=== PATIENT | female | born 1975 | race Caucasian/White ===

== ENCOUNTER 2016-08-25 05:36 | Emergency (ER) | payer MEDICARE ==
[2016-08-25] MEDS ORDERED: ONDANSETRON ODT 4 MG TAB.RAPDIS ONE (06:02)
[2016-08-25 06:16] LABS: BASOPHIL# 0.1 X 10^3uL (0.0-0.1); BASOPHILS 0.5 % (0.0-2.0); EOSINOPHILS 2.7 % (0.0-6.0); EOSINOPHILS# 0.3 X 10^3uL (0.0-0.4); HEMATOCRIT 43.9 % (36.0-48.0); HEMOGLOBIN 15.3 g/dL (12.0-16.0); LYMPHOCYTES 30.8 % (20.0-40.0); LYMPHOCYTES# 3.2 X 10^3uL (0.8-3.8); MEAN CELL VOLUME 85.7 fL (84.0-102.0); MEAN PLATELET VOLUME 8.8 fL (7.4-10.4); MONOCYTES 4.9 % (2.0-10.0); MONOCYTES# 0.5 X 10^3uL (0.2-1.0); NEUTROPHILS 61.1 % (54.0-75.0); NEUTROPHILS# 6.2 X 10^3uL (2.6-6.7); PLATELET COUNT 244 X 10^3uL (130-440); RED BLOOD COUNT 5.12 X 10^6uL (4.20-6.10); RED CELL DISTRIBUTION WIDTH 12.7 % (11.5-14.5); WHITE BLOOD COUNT 10.3 X 10^3uL (3.9-10.7)
[2016-08-25] MEDS ORDERED: HYDROmorphone HCL 1 MG/ML SYR ONE (06:17)
[2016-08-25] MEDS ORDERED: ONDANSETRON HCL 4 MG/2 ML VIAL ONE (06:18)
[2016-08-25 06:28] LABS: ALBUMIN 4.7 g/dL (3.5-5.0); ALKALINE PHOSPHATASE 81 U/L (38-126); ALT 43 U/L (9-52); AST 27 U/L (14-36); BILIRUBIN, DIRECT 0.4 mg/dL (0.0-0.4); BILIRUBIN, TOTAL 0.6 mg/dL (0.2-1.3); BLOOD UREA NITROGEN 7 mg/dL (7-17); CALCIUM 9.9 mg/dL (8.4-10.2); CHLORIDE 102 mmol/L (98-107); CREATININE 0.7 mg/dL (0.5-1.0); EST GLOMERULAR FILTRATION RATE > 60 mL/min; GLUCOSE 117 mg/dL (70-100); LIPASE 71 U/L (23-300); SODIUM 143 mmol/L (137-145); TOTAL PROTEIN 8.3 g/dL (6.3-8.2)
[2016-08-25 06:40] LABS: TROPONIN I < 0.012 ng/mL (0.00-0.034)
--- NOTE | 2016-08-25 07:28 | ER PHYSICIAN DOCUMENTATION ---
Physician Documentation [facility] Name:Cinthya Yanes Age:41 yrs Sex:Female :1975 Arrival Date:08/25/2016 Time:05:36 Bed3 Private MD: Taco Salazar Disposition: 08/25/16 07:16 Discharged to Home/Self Care. Impression: Dehydration, Abdominal Pain, Generalized, Abdominal Pain, Left Lower Quadrant. - Condition is Good. - Discharge Instructions: Abdomen - ABDOMINAL PAIN, Unknown Cause, (Female). - Prescriptions for Hydrocodone- Acetaminophen 5-325 mg Oral Tablet - take 1 tablet by ORAL route every 6 hours As needed; 20 tablet. - Medical Reconciliation form form. - Follow up: Gurinder Lange MD; When: Tomorrow; Reason: Continuance of care. - Problem is an ongoing problem. - Symptoms have improved. HPI: 08/25 06:00 This 41 yrs old Female presents to ER via EMS with complaints of jm Nausea/Vomiting, Chest Tightness. 06:00 The patient presents to the emergency department with nausea, with vomiting, with jm diarrhea, with associated abdominal pain, of the suprapubic area, right lower quadrant and left lower quadrant. Onset: The symptom(s)/episode began/occurred 3 week(s) ago. Possible causes: unknown. The symptoms are alleviated by nothing. Associated signs and symptoms: Pertinent positives: abdominal pain. Severity of symptoms: in the emergency department the symptoms are unchanged. The patient has experienced similar episodes in the past, and the symptoms today are exactly the same, to when the patient was apparently diagnosed with unknown abd pain. Pt has been worked up in the past, but no dx has been made. . The patient has been recently seen by a physician: Dr. Lange yesterday. . Pt upset that nobody can tell her where her pain is from. . Historical: - Allergies: PENICILLINS; Codeine; Tramadol HCl; - Home Meds: 1. Abilify oral 2. triliptal 3. Zoloft Oral - PMHx: DEPRESSION; pre-diabetes; Gastroenteritis (August 04, 2016); Dehydration (August 04, 2016); Hyperglycemia (August 04, 2016); - PSHx: HYSTERECTOMY; KNEE SURGERY; CHOLECYSECTOMY; HYSTERECTOMY; - Tetanus: < 10 years. - Ebola Screening: : Patient negative for fever greater than or equal to 101.5 degrees Fahrenheit, and additional compatible Ebola Virus Disease symptoms. - Immunization history: Flu Vaccine < 1 year. - Social history: Smoking status: Patient uses tobacco products, current every day smoker. ROS: 06:00 Constitutional: Negative for fatigue, fever. 06:00 ENT: Negative for sinus congestion, sinus pain, sore throat. 06:00 Cardiovascular: Positive for chest pain. 06:00 Respiratory: Negative for cough, shortness of breath. 06:00 Abdomen/GI: Positive for abdominal pain, nausea, vomiting, diarrhea. 06:00 : Negative for urinary symptoms. 06:00 All other systems are negative. Exam: 06:00 Constitutional: The patient appears alert, awake, obese. 06:00 Head/face: Exam is negative for obvious evidence of injury or deformity, Sinus tenderness, is not appreciated. 06:00 Eyes: Periorbital structures: appear normal, Conjunctiva: normal. 06:00 ENT: Mouth: is normal, Voice: is normal. 06:00 Cardiovascular: Rate: normal, Rhythm: regular. 06:00 Respiratory: Respirations: normal, Breath sounds: are normal. 06:00 Abdomen/GI: Bowel sounds: normal, Palpation: soft, moderate abdominal tenderness, in the suprapubic area, right lower quadrant and left lower quadrant. 06:00 Back: CVA tenderness, is absent, vertebral tenderness, is not appreciated. 06:00 : CVA tenderness, is absent. 06:00 Skin: Appearance: Color: pink, no rash present. 06:00 Neuro: Mentation: is normal, Gait: is steady. 06:00 Psych: Behavior/mood is pleasant, cooperative, Affect is calm. Vital Signs: 05:46 BP 132 / 79; Pulse 85; Resp 17; Temp 98.2; Pulse Ox 98% on R/A; Weight 58.97 kg; Height rh 5 ft. 6 in. (167.64 cm); Pain 6/10; 07:27 BP 122 / 74; Pulse 82; Resp 20; Pulse Ox 96% on R/A; st 05:46 Body Mass Index 20.98 (58.97 kg, 167.64 cm) rh MDM: 05:47 Patient medically screened. 06:00 Differential diagnosis: viral gastroenteritis, gastroenteritis. Data reviewed: vital jm signs, nurses notes, old medical records, lab test result(s), radiologic studies, and as a result, I will discharge patient. Counseling: I had a detailed discussion with the patient and/or guardian regarding: the historical points, exam findings, and any diagnostic results supporting the discharge/admit diagnosis, lab results, radiology results, the need for outpatient follow up, with the patient's primary care provider. 06:00 Medication response: The patient's symptoms have improved. Response to treatment: the patient's symptoms have markedly improved after treatment. ED course: Pt better after meds. NO cause for pt's continued pain, but no EMC identified. . 08/25 06:22 Order name: CBC AUTO DIF, MDIF/RMOR IF IND; Complete Time: 07:16 EDMS 08/25 06:37 Order name: BASIC METABOLIC PANEL; Complete Time: 07:16 EDMS 08/25 06:37 Order name: HEPATIC PANEL; Complete Time: 07:16 EDMS 08/25 06:37 Order name: LIPASE; Complete Time: 07:16 EDMS 08/25 06:40 Order name: TROPONIN I; Complete Time: 07:16 EDMS 08/25 06:04 Order name: EKG - 12 Lead; Complete Time: 06:24 08/25 06:04 Order name: NPO; Complete Time: 06:24 08/25 06:25 Order name: Oxygen; Complete Time: 06:25 rh Dispensed Medications: 06:15 Drug: Phenergan 12.5 mg; Route: IVP; Site: left antecubital; rh 06:29 Follow up: Response: No adverse reaction rh 06:18 Drug: Zofran 4 mg; Route: IVP; Infused Over: 2 mins; Site: left antecubital; rh 06:29 Follow up: Response: No adverse reaction; Nausea is decreased rh 06:18 Drug: NS 0.9% 1000 ml; Route: IV; Rate: bolus; Site: left antecubital; rh 07:28 Follow up: IV Status: Completed infusion; IV Intake: 1000ml st 06:24 Drug: Dilaudid 1 mg; Route: IVP; Site: left antecubital; rh 06:29 Follow up: Response: Pain is decreased rh Signatures: Twombly, Summer, RN RN st Mathur, Taco, MD MD jm Hofsess, Michell rh
--- NOTE | 2016-08-25 07:28 | ER NURSING DOCUMENTATION ---
Nurse's Notes [facility] Name:Cinthya Yanes Age:41 yrs Sex:Female :1975 Arrival Date:08/25/2016 Time:05:36 Bed3 Private MD: Diagnosis:Dehydration;Abdominal Pain, Generalized;Abdominal Pain, Left Lower Quadrant Presentation: 08/25 05:42 Acuity: FLACO 3 rh 05:43 Presenting complaint: Patient states: N/V/D for two weeks along with headache. Pt last rh night developed chest discomfort that is intermittent. Transition of care: Home. Care prior to arrival: Medication(s) given: Zofran 4mgODT Labs. 05:43 Method Of Arrival: EMS: 410 rh Triage Assessment: 05:45 General: Appears in no apparent distress, Behavior is cooperative. Pain: Complains of rh pain in chest and abdomen. EENT: Oral mucosa is dry. Neuro: Level of Consciousness is awake, alert, obeys commands. Cardiovascular: Capillary refill < 3 seconds. Respiratory: Airway is patent Respiratory effort is even, unlabored. GI: Abdomen is obese, Reports diarrhea, nausea, vomiting, since two weeks. : Reports urinary frequency. Derm: Skin is intact, is healthy with good turgor, Skin is pink, warm & dry. Historical: - Allergies: PENICILLINS; Codeine; Tramadol HCl; - Home Meds: 1. Abilify oral 2. triliptal 3. Zoloft Oral - PMHx: DEPRESSION; pre-diabetes; Gastroenteritis (August 04, 2016); Dehydration (August 04, 2016); Hyperglycemia (August 04, 2016); - PSHx: HYSTERECTOMY; KNEE SURGERY; CHOLECYSECTOMY; HYSTERECTOMY; - Tetanus: < 10 years. - Ebola Screening: : Patient negative for fever greater than or equal to 101.5 degrees Fahrenheit, and additional compatible Ebola Virus Disease symptoms. - Immunization history: Flu Vaccine < 1 year. - Social history: Smoking status: Patient uses tobacco products, current every day smoker. Screenin:47 Infectious Disease Risk None. Abuse screen: Denies threats or abuse. Denies injuries rh from another. Nutritional screening: No deficits noted. Assessment: 05:47 See Triage Assessment done by same RN. rh Vital Signs: 05:46 BP 132 / 79; Pulse 85; Resp 17; Temp 98.2; Pulse Ox 98% on R/A; Weight 58.97 kg; Height rh 5 ft. 6 in. (167.64 cm); Pain 6/10; 07:27 BP 122 / 74; Pulse 82; Resp 20; Pulse Ox 96% on R/A; st 05:46 Body Mass Index 20.98 (58.97 kg, 167.64 cm) ED Course: 05:38 Patient arrived in ED. ma 05:42 Michell Devi is Primary Nurse. 05:42 Triage completed. rh 05:47 Taco Mathur MD is Attending Physician. 05:47 Notified ED Physician of patient's arrival and chief complaint. Dr. Mathur notified. rh 05:47 Valuables Remains with patient Patient has correct armband on for positive rh identification. Bed in low position. Call light in reach. Side rails up X 1. 05:47 Maintain field IV. Dressing intact. Site clean & dry. Gauge & site: 20G L AC. rh 06:15 Oxygen Oxygen administration via nasal cannula @ 2L/min. rh 06:19 EKG done. (by ED staff). Reviewed by Taco Mathur MD. rh 06:[address] ms 07:00 Patient moved back from CT. ms 07:15 Gurinder Lange MD is Referral Physician. Administered Medications: 06:15 Drug: Phenergan 12.5 mg; Route: IVP; Site: left antecubital; rh 06:29 Follow up: Response: No adverse reaction rh 06:18 Drug: Zofran 4 mg; Route: IVP; Infused Over: 2 mins; Site: left antecubital; rh 06:29 Follow up: Response: No adverse reaction; Nausea is decreased rh 06:18 Drug: NS 0.9% 1000 ml; Route: IV; Rate: bolus; Site: left antecubital; rh 07:28 Follow up: IV Status: Completed infusion; IV Intake: 1000ml st 06:24 Drug: Dilaudid 1 mg; Route: IVP; Site: left antecubital; rh 06:29 Follow up: Response: Pain is decreased rh Intake: 07:28 IV: 1000ml; Total: 1000ml. st Outcome: 07:16 Discharge ordered by MD. 07:27 Discharged to home ambulatory. st 07:27 Condition: stable 07:27 Discharge instructions given to patient, Instructed on discharge instructions, follow up and referral plans. medication usage, Prescriptions given X 1. 07:28 Patient left the ED. 08/26 09:23 Discharge F/U Call: Unable to reach: no answer nf Signatures: Estefania Tobar, RN Susan Infante RN RN nf Meyer, John, MD MD jm Strickland, Mary ms Hofsess, Susi Miller
--- NOTE | 2016-08-25 08:04 | CT REPORT ---
HISTORY: Bilateral flank pain x1 month COMPARISON: CT pelvis dated 06/28/2016 TECHNIQUE: This examination was performed using automated exposure control, adjustment of mA or kV according to patient size, and/or use of iterative reconstruction technique. Multiple contiguous axial images were obtained from the lung bases through the pubic symphysis following administration of intravenous contrast. 100cc Isovue 300 contrast. FINDINGS: The visualized lung parenchyma and cardiac structures are unremarkable. Abdomen/pelvis: The liver is borderline enlarged with right hepatic lobe spanning 19.8 cm, probable hepatic steatosis. The patient is status post cholecystectomy. The spleen is normal in appearance. There is no pancreatic mass or ductal dilatation. The adrenal glands are unremarkable. The kidneys are equal in size and enhancement. There is a 4 mm nonobstructing calculus within the inferior pole of the left kidney. The stomach, small bowel, and large bowel are unremarkable. No significant free fluid is noted. The uterus is surgically absent, no adnexal mass There is no mesenteric edema or inflammatory process. Vascular structures of the abdomen and pelvis are unremarkable. No pathologic adenopathy is identified. No suspicious bony lesions are seen. IMPRESSION: 1. No acute intra-abdominal pathology 2. Nonobstructive nephrolithiasis, left kidney 3. Mild hepatomegaly, probable hepatic steatosis. Findings were communicated by telephone to Taco Mathur 08/25/2016 7:12 AM Final Electronic Signature: This report was electronically signed by Marko Spears MD on 08/25/2016 7:11 AM. joels / MICHAEL
== END 2016-08-25 07:29 | disposition home or self-care (01) ==
LOC: ER 05:36
DX: E86.0 Dehydration (principal); R10.84 Generalized abdominal pain; R11.2 Nausea with vomiting, unspecified; R19.7 Diarrhea, unspecified; F17.210 Nicotine dependence, cigarettes, uncomplicated; Z79.899 Other long term (current) drug therapy; Z74.3 Need for continuous supervision
CPT/HCPCS: 74177; 80048; 80076; 83690; 84484; 85025; 93005; 96361; 96374; 96375; 99285; A0425; A0427; J1170; J2405; J2550

== ENCOUNTER 2016-10-08 18:59 | Emergency (ER) | payer MEDICARE, MEDICAID ==
[2016-10-08] MEDS ORDERED: predniSONE 10 MG TABLET PO ONE (20:05)
[2016-10-08] MEDS ORDERED: DOXYCYCLINE 100 MG CAPSULE PO ONE (20:05)
[2016-10-08] MEDS ORDERED: ALBUTEROL HFA 1 INH INHALER INHALATION ONE (20:06)
[2016-10-08] MEDS ORDERED: HYDROcodone/APAP PREPAC 5/325 1 TAB TABLET PO ONE (20:06)
[2016-10-08] MEDS ORDERED: INHALER, ASSIST DEVICES 1 PKT EACH ONE (20:06)
--- NOTE | 2016-10-08 20:09 | ER PHYSICIAN DOCUMENTATION ---
Physician Documentation [facility] Name:Cinthya Yanes Age:41 yrs Sex:Female :1975 Arrival Date:10/08/2016 Time:18:59 Bed4 Private MD:Gurinder Lange ED, Tom Disposition: 10/08 20:30 Chart complete. tl1 Disposition: 10/08/16 19:51 Discharged to Home/Self Care. Impression: Reactive Airway Dz w/ Bronchitis, Bronchitis Chronic Obstructive W/Acute Exacerbation. - Condition is Good. - Discharge Instructions: BRONCHITIS w/ Wheezing (Adult), BRONCHITIS, ANTIBIOTICS (Child). - Prescriptions for albuterol sulfate 90 mcg/actuation Inhalation HFA aerosol inhaler - inhale 2 puff by INHALATION route every 4-6 hours; 1 Inhaler. Prednisone 20 mg Oral Tablet - take 2 tablet by ORAL route once daily for 5 days; 10 tablet. Doxycycline Hyclate 100 mg Oral Tablet - take 1 tablet by ORAL route every 12 hours; 20 tablet. - Medical Reconciliation form form. - Follow up: Gurinder Lange MD; When: 4- 6 days; Reason: Recheck today's complaints, Continuance of care. - Problem is new. - Symptoms have improved. HPI: 19:06 This 41 yrs old Female presents to ER with complaints of Non-Productive Cough.tl1 19:41 The patient or guardian reports cough, that is intermittent, with no sputum. Onset: The tl1 symptom(s)/episode began/occurred 7 day(s) ago. 19:41 She has been smoking for 25 years. Cough is productive when she wakes up in the AM and tl1 is getting worse. Has noted some wheezing and some subjective fever, but no chills or sweats. Does have some mild dyspnea. No hemoptysis. No chest pain or pressure. No h/o CAD or any RF for PE.. No LE edema or discomfort. No PND or orthopnea.. Historical: - Allergies: PENICILLINS; Codeine; Tramadol HCl; - Home Meds: 1. Lisinopril Oral 2. Abilify oral 3. Trileptal oral 4. Zoloft Oral 5. Glyburide Oral - PMHx: Diabetes - NIDDM; Hypertension; DEPRESSION; ptsd; - PSHx: Tonsillectomy; Knee surgery; Hysterectomy; Cholecysectomy; - Tetanus: < 10 years. - Ebola Screening: : Patient denies exposure to infectious person. Patient denies travel to an Ebola-affected area in the 21 days before illness onset. . - Immunization history: Flu Vaccine < 1 year. - Social history: Smoking status: Patient uses tobacco products, current every day smoker. Patient uses marijuana Patient/guardian denies using alcohol. - Code Status:: Full code. ROS: 20:00 Respiratory: Positive for cough, wheezing, Negative for dyspnea on exertion, tl1 hemoptysis, pleurisy, shortness of breath. 20:00 All other systems are negative. Exam: 20:00 Head/Face: Normocephalic, atraumatic. tl1 Eyes: Pupils equal round and reactive to light, extra-ocular motions intact. Lids and lashes normal. Conjunctiva and sclera are non-icteric and not injected. Cornea within normal limits. Periorbital areas with no swelling, redness, or edema. Neck: Trachea midline, no thyromegaly or masses palpated, and no cervical lymphadenopathy. Supple, full range of motion without nuchal rigidity, or vertebral point tenderness. No Meningismus. Chest/axilla: Normal chest wall appearance and motion. Nontender with no deformity. No lesions are appreciated. 20:00 Cardiovascular: Regular rate and rhythm with a normal S1 and S2. No gallops, murmurs, tl1 or rubs. Normal PMI, no JVD. No pulse deficits. 20:00 Constitutional: The patient appears in no acute distress, alert, awake, non-diaphoretic, non-toxic, well developed, well hydrated, well groomed, well nourished, somewhat fatigued 20:00 Respiratory: Respirations: normal, Breath sounds: rales, are not appreciated, rhonchi, are not appreciated, wheezing, is not appreciated, decreased breath sounds, that are mild, stridor, is not appreciated. 20:00 Abdomen/GI: Inspection: abdomen appears normal, Palpation: abdomen is soft and non-tender. 20:00 Musculoskeletal/extremity: Extremities: no acute changes. 20:00 Skin: Exam negative for acute changes. 20:00 Neuro: Orientation: is normal, appropriate for stated age, Mentation: is normal, Memory: is normal, Cranial nerves: Motor: moves all fours, Gait: is steady, at a normal pace, without difficulty, appropriate for age. Vital Signs: 19:12 BP 116 / 76; Pulse 86; Resp 14; Temp 97.9; Pulse Ox 94% on R/A; Weight 105.69 kg; lb Height 5 ft. 6 in. (167.64 cm); Pain 8/10; 20:07 BP 116 / 70; Pulse 80; Resp 16; Pulse Ox 94% on R/A; lb 19:12 Body Mass Index 37.61 (105.69 kg, 167.64 cm) lb MDM: 19:05 Patient medically screened. tl1 20:30 Differential Diagnosis: Bronchitis Influenza Upper Respiratory Infection Viral Syndrome tl1 Pneumonia. Data reviewed: vital signs, nurses notes, and as a result, I will discharge patient. Counseling: I had a detailed discussion with the patient and/or guardian regarding: the historical points, exam findings, and any diagnostic results supporting the discharge/admit diagnosis, the need for outpatient follow up, to return to the emergency department if symptoms worsen or persist or if there are any questions or concerns that arise at home. Response to treatment: There is no appreciated change of the patient's symptoms at this time, and as a result, I will discharge patient. Dispensed Medications: 20:06 Drug: Doxycycline 100 mg; Route: PO; lb 20:06 Follow up: Response: No adverse reaction lb 20:06 Drug: predniSONE 40 mg; Route: PO; lb 20:06 Follow up: Response: No adverse reaction lb 20:06 Drug: Albuterol HFA Inhaler 2 puffs; Route: Inhalation; lb 20:06 Follow up: Response: Pharmacy closed - take home med pack lb 20:06 Drug: HYDROcodone-acetaminophen (5mg/325 mg) 1-2 tabs 1 tabs; Route: PO; lb 20:06 Follow up: Response: Pharmacy closed - take home med pack lb Signatures: Wayne Fields MD MD tl1 Leigh Weiss
--- NOTE | 2016-10-08 20:09 | ER NURSING DOCUMENTATION ---
Nurse's Notes [facility] Name:Cinthya Yanes Age:41 yrs Sex:Female :1975 Arrival Date:10/08/2016 Time:18:59 Bed4 Private MD:Gurinder Lange Diagnosis:Bronchitis Chronic Obstructive W/Acute Exacerbation;Reactive Airway Dz w/ Bronchitis Presentation: 10/08 19:09 Presenting complaint: Patient states: sore throat, headache, right side neck pain for 1 lb week. taking otc cold meds without relief. also c/o dry harsh cough, chest congestion. Transition of care: Home. Notified ED Physician of Dr. Fields notified. 19:09 Acuity: FLACO 4 lb 19:09 Method Of Arrival: Walk In lb Triage Assessment: 19:12 General: Appears uncomfortable, Behavior is appropriate for age. Pain: Complains of lb pain in left denominational, right jaw and left jaw. Historical: - Allergies: PENICILLINS; Codeine; Tramadol HCl; - Home Meds: 1. Lisinopril Oral 2. Abilify oral 3. Trileptal oral 4. Zoloft Oral 5. Glyburide Oral - PMHx: Diabetes - NIDDM; Hypertension; DEPRESSION; ptsd; - PSHx: Tonsillectomy; Knee surgery; Hysterectomy; Cholecysectomy; - Tetanus: < 10 years. - Ebola Screening: : Patient denies exposure to infectious person. Patient denies travel to an Ebola-affected area in the 21 days before illness onset. . - Immunization history: Flu Vaccine < 1 year. - Social history: Smoking status: Patient uses tobacco products, current every day smoker. Patient uses marijuana Patient/guardian denies using alcohol. - Code Status:: Full code. Screenin:13 Infectious Disease Risk None. Abuse screen: Denies threats or abuse. Denies injuries lb from another. Nutritional screening: No deficits noted. Assessment: 19:13 See Triage Assessment done by same RN. lb 19:15 Respiratory: Airway is patent Trachea midline Respiratory effort is unlabored, Breath lb sounds with wheezes bilaterally. Vital Signs: 19:12 BP 116 / 76; Pulse 86; Resp 14; Temp 97.9; Pulse Ox 94% on R/A; Weight 105.69 kg; lb Height 5 ft. 6 in. (167.64 cm); Pain 8/10; 20:07 BP 116 / 70; Pulse 80; Resp 16; Pulse Ox 94% on R/A; lb 19:12 Body Mass Index 37.61 (105.69 kg, 167.64 cm) lb ED Course: 19:00 Patient arrived in ED. jt 19:05 Wayne Fields MD is Attending Physician. tl1 19:09 Leigh Weiss is Primary Nurse. lb 19:10 Triage completed. lb 19:12 Gurinder Lange MD is Private Physician. jt 19:13 Valuables Remains with patient Placed in gown. Bed in low position. Call light in reach.lb 19:49 Gurinder Lange MD is Referral Physician. tl1 Administered Medications: 20:06 Drug: Doxycycline 100 mg; Route: PO; lb 20:06 Follow up: Response: No adverse reaction lb 20:06 Drug: predniSONE 40 mg; Route: PO; lb 20:06 Follow up: Response: No adverse reaction lb 20:06 Drug: Albuterol HFA Inhaler 2 puffs; Route: Inhalation; lb 20:06 Follow up: Response: Pharmacy closed - take home med pack lb 20:06 Drug: HYDROcodone-acetaminophen (5mg/325 mg) 1-2 tabs 1 tabs; Route: PO; lb 20:06 Follow up: Response: Pharmacy closed - take home med pack lb Outcome: 19:51 Discharge ordered by . tl1 20:07 Discharged to home ambulatory. lb 20:07 Condition: stable 20:07 Discharge Assessment: Patient awake, alert and oriented x 3. No cognitive and/or functional deficits noted. Patient verbalized understanding of disposition instructions. 20:07 Instructed on discharge instructions, follow up and referral plans. no drinking with medication, no driving heavy equipment. 20:08 Patient left the ED. lb 10/09 12:29 Discharge F/U Call: Spoke with: patient. Overall Care on a scale of 1-10 with 10 ma being the best care, you rate our care as: Other comments: States care was very satisfactory States is feeling better Signatures: Kendra Owens, RN RN Wayne Kang MD MD tl1 Megan Mishra jt Leigh Weiss
== END 2016-10-08 20:09 | disposition home or self-care (01) ==
LOC: ER 18:59
DX: J44.0 Chronic obstructive pulmonary disease with (acute) lower respiratory infection (principal); Z72.0 Tobacco use; R53.83 Other fatigue; I10 Essential (primary) hypertension; E11.9 Type 2 diabetes mellitus without complications; Z79.899 Other long term (current) drug therapy
CPT/HCPCS: 94640; 99283; 99284; J7512; J7611

== ENCOUNTER 2016-10-12 10:00 | Emergency (ER) | payer MEDICARE, MEDICAID ==
[2016-10-12] MEDS ORDERED: ONDANSETRON HCL 4 MG/2 ML VIAL ONE (10:38)
[2016-10-12 10:57] LABS: BASOPHILS 0.2 % (0.0-2.0); EOSINOPHILS 0.7 % (0.0-6.0); EOSINOPHILS# 0.1 X 10^3uL (0.0-0.4); HEMATOCRIT 43.9 % (36.0-48.0); LYMPHOCYTES 31.6 % (20.0-40.0); LYMPHOCYTES# 3.6 X 10^3uL (0.8-3.8); MEAN CELL VOLUME 85.2 fL (80.0-100.0); MEAN CORPUS. HGB CONCENTRATION 34.2 g/dL (32.0-36.0); MEAN CORPUSCULAR HEMOGLOBIN 29.1 pg (29.0-35.0); MEAN PLATELET VOLUME 8.1 fL (7.4-10.4); MONOCYTES 4.3 % (2.0-10.0); MONOCYTES# 0.5 X 10^3uL (0.2-1.0); NEUTROPHILS 63.2 % (54.0-75.0); NEUTROPHILS# 7.2 X 10^3uL (2.6-6.7); PLATELET COUNT 266 X 10^3uL (130-440); RED BLOOD COUNT 5.15 X 10^6uL (4.20-6.10); RED CELL DISTRIBUTION WIDTH 12.8 % (11.5-14.5); WHITE BLOOD COUNT 11.4 X 10^3uL (3.9-10.7)
--- NOTE | 2016-10-12 10:58 | RADIOLOGY REPORT ---
Two views of the chest, without prior films for comparison, demonstrate the heart, vessels and lungs to be unremarkable. No infiltrate, fluid or pneumothorax is seen. IMPRESSION: Unremarkable two views of the chest. MTDD
[2016-10-12 11:07] LABS: A/G RATIO 1.2; ALBUMIN 4.3 g/dL (3.5-5.0); ALKALINE PHOSPHATASE 65 U/L (38-126); ALT 33 U/L (9-52); AST 15 U/L (14-36); BILIRUBIN, TOTAL 0.6 mg/dL (0.2-1.3); BLOOD UREA NITROGEN 12 mg/dL (7-17); CALCIUM 9.8 mg/dL (8.4-10.2); CHLORIDE 101 mmol/L (98-107); CREATININE 0.7 mg/dL (0.5-1.0); EST GLOMERULAR FILTRATION RATE > 60 mL/min; GLUCOSE 99 mg/dL (70-100); POTASSIUM 3.3 mmol/L (3.5-5.1); SODIUM 139 mmol/L (137-145); TOTAL PROTEIN 7.8 g/dL (6.3-8.2)
[2016-10-12] MEDS ORDERED: IPRATROPIUM/ALBUTEROL 0.5/3 MG 3 ML AMPUL.NEB INHALATION ONE (11:17)
[2016-10-12] MEDS ORDERED: NORMAL SALINE 2,000 ML IV ONE (11:43)
--- NOTE | 2016-10-12 12:02 | ER NURSING DOCUMENTATION ---
Nurse's Notes [facility] Name:Cinthya Yanes Age:41 yrs Sex:Female :1975 Arrival Date:10/12/2016 Time:10:00 Bed4 Private MD:Gurinder Lange Diagnosis:Bronchitis Chronic Obstructive W/Acute Bronchitis Presentation: 10/12 10:15 Presenting complaint: Patient states: worsening if upper respiratory infection. lp Transition of care: Home. 10:15 Method Of Arrival: Walk In lp 10:15 Acuity: FLACO 3 lp Triage Assessment: 10:17 General: Appears in no apparent distress, Behavior is appropriate for age. Pain: lp Complains of pain in right upper quadrant Pain radiates to anterior aspect of right upper chest, anterior aspect of left upper chest, right breast and left breast Pain began With cough. EENT: No deficits noted. Neuro: No deficits noted. Cardiovascular: Heart tones S1 S2. Respiratory: Breath sounds with crackles bilaterally. Breath sounds with wheezes bilaterally. GI: Reports abd pain with cough. : No deficits noted. Derm: No deficits noted. Musculoskeletal: No deficits noted. Historical: - Allergies: PENICILLINS; Codeine; Tramadol HCl; - Home Meds: 1. Lisinopril Oral 2. Abilify oral 3. Trileptal oral 4. Zoloft Oral 5. 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 - Ebola Screening: : Patient negative for fever greater than or equal to 101.5 degrees Fahrenheit, and additional compatible Ebola Virus Disease symptoms. Patient denies exposure to infectious person. Patient denies travel to an Ebola-affected area in the 21 days before illness onset. . - Immunization history: Flu Vaccine < 1 year. - Social history: Smoking status: Patient uses tobacco products, current every day smoker. Screenin:20 Infectious Disease Risk None. Abuse screen: Denies threats or abuse. Denies injuries lp from another. Nutritional screening: No deficits noted. Assessment: 10:20 See Triage Assessment done by same RN. lp Vital Signs: 10:19 BP 140 / 84; Pulse 83; Resp 16; Temp 97.9(O); Pulse Ox 93% on R/A; Weight 105.69 kg; lp Height 5 ft. 6 in. (167.64 cm); Pain /; 11:38 BP 116 / 66; Pulse 87; Resp 16; Pulse Ox 92% on R/A; lp 10:19 Body Mass Index 37.61 (105.69 kg, 167.64 cm) lp ED Course: 10:02 Patient arrived in ED. ds 10:02 Gurinder Lange MD is Private Physician. ds 10:14 Wayne Fields MD is Attending Physician. tl1 10:15 Leanne Kaur, ADRIANA is Primary Nurse. lp 10:15 Triage completed. lp 10:[address] Fields notified. lp 10:20 Valuables Remains with patient Patient has correct armband on for positive lp identification. Bed in low position. Call light in reach. Side rails up X 1. 10:30 Port Xray Completed. hunter 10:46 Inserted peripheral IV: 20 gauge in left antecubital area and blood collected. lp 11:08 Inserted peripheral IV: 20 gauge in left forearm Discontinued IV DC 20 Gauge in L AC. lp 11:30 Gurinder Lange MD is Referral Physician. tl1 Administered Medications: 10:45 Drug: NS 0.9% 1000 ml; Route: IV; Rate: bolus; Site: left antecubital; lp 11:16 Follow up: Response: No adverse reaction; No change in condition; IV Status: Completed lp infusion; IV Intake: 1000ml 10:45 Drug: Zofran 4 mg; Route: IVP; Infused Over: 2 mins; Site: left antecubital; lp 11:16 Follow up: Response: Nausea is decreased lp 11:08 Drug: DuoNeb (Albuterol 2.5 mg, Atrovent 0.5 mg); 3 ml; Route: Nebulizer; lp 11:16 Follow up: Response: Wheezing diminished lp 11:29 Drug: NS 0.9% 500 ml; Route: IV; Rate: bolus; Site: left forearm; lp 12:01 Follow up: Response: No adverse reaction; No change in condition; IV Status: Completed lp infusion; IV Intake: 1000ml Point of Care Testing: Blood Glucose: 10:33 Blood Glucose: 107 mg/dL; lp Ranges: Intake: 11:16 IV: 1000ml; Total: 1000ml. lp 12:01 IV: 1000ml; Total: 2000ml. lp Outcome: 11:32 Discharge ordered by . tl1 11:45 Discharged to home ambulatory. lp 11:45 Condition: improved 11:45 Instructed on discharge instructions, follow up and referral plans. medication usage. 12:01 Patient left the ED. lp 10/13 09:06 Discharge F/U Call: Spoke with: patient. other: Name: pt states that she is still st feeling sick but not as much as she had been. pt asked if she would be able to use a albuterol neb that she has a to home. pt was told that that would be OK. Signatures: Estefania Tobar, RN Leanne Castro RN RN lp Srot, Aaliyah, Christian Reg mary Bryant, Wayne Scherer MD MD tl1
--- NOTE | 2016-10-12 12:02 | ER PHYSICIAN DOCUMENTATION ---
Physician Documentation [facility] Name:Cinthya Yanes Age:41 yrs Sex:Female :1975 Arrival Date:10/12/2016 Time:10:00 Bed4 Private MD:Gurinder Lange EDrubenWayne Disposition: 10/12/16 11:32 Discharged to Home/Self Care. Impression: Bronchitis Chronic Obstructive W/Acute Bronchitis. - Condition is Good. - Discharge Instructions: BRONCHITIS w/ Wheezing (Adult). - Prescriptions for Combivent Respimat 20- 100 mcg/actuation Inhalation aerosol - inhale 1 puff by INHALATION route 4 times per day not to exceed 6 puffs in 24hrs; 1 Inhaler. - Medical Reconciliation form form. - Follow up: Gurinder Lange MD; When: 4- 6 days; Reason: Recheck today's complaints, Continuance of care. - Problem is new. - Symptoms have improved. HPI: 10/12 10:16 This 41 yrs old Female presents to ER via Walk In with complaints of Cough tl1 and Dizziness. 10:27 I saw her here 4 days ago for a 1 week h/o cough that was becoming productive. Vitals tl1 were normal and I treated her with doxy, prednisone and albuterol. Since then she continues to feel worse and is spending most of the time in bed. Yesterday she noted lightheadedness on standing which is getting worse. She is occasionally nauseated but says she is drinking liquids OK. No diarrhea. Has not been checking her blood sugars for the last 5 days. She is somewhat dyspneic and wheezing more despite using prednisone and albuterol. Biggest complaint is that she is lightheaded and feels dehydrated. No chest pain or hemoptysis. No fever. . Historical: - Allergies: PENICILLINS; Codeine; Tramadol HCl; - Home Meds: 1. Lisinopril Oral 2. Abilify oral 3. Trileptal oral 4. Zoloft Oral 5. 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 - Ebola Screening: : Patient negative for fever greater than or equal to 101.5 degrees Fahrenheit, and additional compatible Ebola Virus Disease symptoms. Patient denies exposure to infectious person. Patient denies travel to an Ebola-affected area in the 21 days before illness onset. . - Immunization history: Flu Vaccine < 1 year. - Social history: Smoking status: Patient uses tobacco products, current every day smoker. ROS: 10:41 Respiratory: Positive for cough, shortness of breath, wheezing, Negative for tl1 hemoptysis, orthopnea. 10:41 Neuro: Negative for altered mental status, gait disturbance, headache, seizure activity, syncope, visual changes, weakness. Exam: 10:44 Constitutional: The patient appears in no acute distress, alert, awake, uncomfortable, tl1 Looks fatigued 11:42 Head/Face: Normocephalic, atraumatic. tl1 11:42 ENT: Nares patent. No nasal discharge, no septal abnormalities noted. Tympanic tl1 membranes are normal and external auditory canals are clear. Oropharynx with no redness, swelling, or masses, exudates, or evidence of obstruction, uvula midline. Mucous membranes moist. 11:42 Cardiovascular: Rate: normal, Rhythm: regular, Heart sounds: normal, Edema: is not appreciated, JVD: is not appreciated. 11:42 Respiratory: the patient does not display signs of respiratory distress, Respirations: normal, Breath sounds: rales, are not appreciated, rhonchi, that are mild, wheezing, that is moderate, is heard diffusely, decreased breath sounds, stridor, is not appreciated. 11:42 Abdomen/GI: Inspection: abdomen appears normal, Palpation: abdomen is soft and non-tender. 11:42 Musculoskeletal/extremity: Exam is negative for acute changes, edema. 11:42 Skin: Exam negative for acute changes. 11:42 Neuro: Orientation: is normal, Cerebellar function: grossly normal, Gait: is steady, at a normal pace, without difficulty, appropriate for age. Vital Signs: 10:19 BP 140 / 84; Pulse 83; Resp 16; Temp 97.9(O); Pulse Ox 93% on R/A; Weight 105.69 kg; lp Height 5 ft. 6 in. (167.64 cm); Pain 07/26; 11:38 BP 116 / 66; Pulse 87; Resp 16; Pulse Ox 92% on R/A; lp 10:19 Body Mass Index 37.61 (105.69 kg, 167.64 cm) lp MDM: 10:14 Patient medically screened. tl1 11:53 Differential Diagnosis: Bronchitis Upper Respiratory Infection Pneumonia. Data tl1 reviewed: vital signs, nurses notes, old medical records, lab test result(s), CBC, electrolytes, hepatic panel, radiologic studies, plain films, and as a result, I will discharge patient. Test interpretation: by ED physician or midlevel provider: plain radiologic studies. Counseling: I had a detailed discussion with the patient and/or guardian regarding: the historical points, exam findings, and any diagnostic results supporting the discharge/admit diagnosis, lab results, radiology results, the need for outpatient follow up, to return to the emergency department if symptoms worsen or persist or if there are any questions or concerns that arise at home. Medication response: The patient's symptoms have improved, Response to treatment: the patient's symptoms have markedly improved after treatment, and as a result, I will discharge patient. ED course: 2 L bolus of NS caused a marked improvement in her lightheadedness. Duoneb helped her breathing subjectively quite a bit. CXR was unremarkable. . 10/12 11:00 Order name: CBC AUTO DIF, MDIF/RMOR IF IND; Complete Time: 18:12 EDMS 10/12 18:12 Interpretation: WHITE BLOOD COUNT 11.4; HEMOGLOBIN 15.0; HEMATOCRIT 43.9; PLATELET tl1 COUNT 266. 10/12 11:16 Order name: COMPREHENSIVE METABOLIC PANEL; Complete Time: 18:12 EDMS 10/12 18:12 Interpretation: SODIUM 139; POTASSIUM 3.3; CHLORIDE 101; CARBON DIOXIDE 26; GLUCOSE 99; tl1 BLOOD UREA NITROGEN 12; CREATININE 0.7. Dispensed Medications: 10:45 Drug: NS 0.9% 1000 ml; Route: IV; Rate: bolus; Site: left antecubital; lp 11:16 Follow up: Response: No adverse reaction; No change in condition; IV Status: Completed lp infusion; IV Intake: 1000ml 10:45 Drug: Zofran 4 mg; Route: IVP; Infused Over: 2 mins; Site: left antecubital; lp 11:16 Follow up: Response: Nausea is decreased lp 11:08 Drug: DuoNeb (Albuterol 2.5 mg, Atrovent 0.5 mg); 3 ml; Route: Nebulizer; lp 11:16 Follow up: Response: Wheezing diminished lp 11:29 Drug: NS 0.9% 500 ml; Route: IV; Rate: bolus; Site: left forearm; lp 12:01 Follow up: Response: No adverse reaction; No change in condition; IV Status: Completed lp infusion; IV Intake: 1000ml Point of Care Testing: Blood Glucose: 10:33 Blood Glucose: 107 mg/dL; lp Ranges: Critical Glucose Levels:Adult <50 mg/dl or >400 mg/dl <40 mg/dl or >180 mg/dl Signatures: Leanne Kaur RN RN Wayne Simon MD MD tl1
== END 2016-10-12 12:02 | disposition home or self-care (01) ==
LOC: ER 10:00
DX: J44.0 Chronic obstructive pulmonary disease with (acute) lower respiratory infection (principal); R42 Dizziness and giddiness; R53.83 Other fatigue; F17.210 Nicotine dependence, cigarettes, uncomplicated; E11.9 Type 2 diabetes mellitus without complications; I10 Essential (primary) hypertension; Z79.899 Other long term (current) drug therapy
CPT/HCPCS: 71020; 80053; 85025; 94640; 96361; 96374; 99284; J2405; J7030; J7620